=== PATIENT | male | born 1980 | race Two or more races ===

== ENCOUNTER 2021-08-03 20:51 | Emergency (ER) | payer SELFPAY ==
[~2021-08-03] VITALS: Ht 182.9 cm; Wt 210.0 kg
[2021-08-03 23:00] VITALS: BP 142/97
[2021-08-03] MEDS ORDERED: KETO5DRO89 OS (23:15)
--- NOTE | 2021-08-03 23:15 | PHYS DOC ---
Past Medical History Past Medical History: No Pertinent History Past Surgical History: No Surgical History Smoking Status: Never Smoker Alcohol Use: Occasionally Drug Use: None General Adult EDM: Chief Complaint: EYE PROBLEMS Problems: (1) Eye irritation HPI: HPI: Patient is a 41 year old male with history of severe seasonal allergies who presents with left eye irritation. Patient states that his seasonal allergies have been bothering him more than usual lately, and he has been rubbing his eye a lot. He states that there is a watery, sometimes mucousy discharge. He also reports that there is a fluid bubble in the sclera. He has never had issues like this before. He states that his vision is slightly blurred, but he denies hamilton spots or blind spots. Patient denies headache, pain, fever. Patient has no other complaints at this time. Review of Systems: Review of Systems: ROS negative except as mentioned in HPI. Heart Score: C/O Chest Pain: No Allergies: Allergies: Allergies Coded Allergies Type Severity Reaction Last Updated Verified No Known Drug Allergies 05/20/15 No Physical Exam: PE: Constitutional: Well developed, well nourished, no acute distress, non-toxic appearance. HENT: Normocephalic, atraumatic, bilateral external ears normal, oropharynx moist, no oral exudates, nose normal. Eyes: Visual acuity intact bilaterally. PERRLA, EOMI, OS: conjunctival and scleral injection, lateral chemosis present, watery discharge; corneal abrasion at 6:00 on lower margin appreciated with fluorescein stain and Fernandes lamp. OD: conjunctiva pink and moist, no scleral abnormalities. Cardiovascular:Heart rate regular rhythm, no murmur. Lungs & Thorax: Bilateral breath sounds clear to auscultation. Skin: Warm, dry, no erythema, no rash. Current Patient Data: Vital Signs: Vital Signs Date Time Temp Pulse Resp B/P (MAP) Pulse Ox O2 Delivery O2 Flow Rate FiO2 08/03/21 23:00 97.9 88 16 142/97 (112) 99 Room Air 97.9 Course & Med Decision Making: Course & Med Decision Making Pertinent Labs and Imaging studies reviewed. (See chart for details) Patient history and exam not concerning for bacterial conjunctivitis. Irritation likely due to seasonal allergies and exacerbated by physical irr itation from the patient rubbing his eye. Fluorescein stain and exam with Fernandes lamp was performed and revealed a corneal abrasion in the left eye 6:00 lower margin. Patient will be advised to use antihistamine as well as antibiotic eyedrops. I provided a referral ophthalmology to follow-up. Patient is instructed to call to set up an appointment. Patient is agreeable to the tr eatment plan. Dragon Disclaimer: Dragon Disclaimer: This electronic medical record was generated, in whole or in part, using a voice recognition dictation system. Departure Departure Impression: Primary Impression: Allergic conjunctivitis, left eye Additional Impression: Corneal abrasion, left Qualified Codes: S05.02XA - Injury of conjunctiva and corneal abrasion without foreign body, left eye, initial encounter Referrals: NO PCP (PCP) Brad ORTIZ MD Patient Instructions: Allergic Conjunctivitis, [id number], Eye - Corneal Abrasion, [id number] Additional Instructions: You should call the wealth management director using contact information provided tomorrow to set up a follow-up appointment. Return to emergency department if your symptoms worsen, or you develop a fever or white, thick discharge from your eye. Scripts Ciprofloxacin Hcl (CIPROFLOXACIN HCL) 2.5 Ml Drops 1 DROP OS QID for 7 Days, #5 ML 0 Refills Use 1 drop in the left eye 4 times per day. Be sure to wash hands thoroughly before administering eyedrops and again after so as not to spread the infection. Prov: KATHE CRUZ 08/03/21 Ketotifen Fumarate (KETOTIFEN FUMARATE) 5 Ml Drops 1 DROP OS BID, #5 ML 0 Refills Put 1 drop in the left eye twice a day as needed for symptom relief. Prov: KATHE CRUZ 08/03/21 KATHE CRUZ Aug 03, 2021 23:15
[2021-08-03] MEDS ORDERED: PROPARACAINE 0.5% OPHTH SOLUTION 15ML BOTTLE. OS ONE (23:30)
[2021-08-03] MEDS ORDERED: FLUORESCEIN OPHTH TEST STRIP. OS ONE (23:30)
[2021-08-03] MEDS ORDERED: CIPR2.5D2 OS (23:41)
== END 2021-08-03 23:50 | disposition home or self-care (01) ==
LOC: ER 20:51
DX: S05.02XA Injury of conjunctiva and corneal abrasion without foreign body, left eye, initial encounter (principal); H10.12 Acute atopic conjunctivitis, left eye; X58.XXXA Exposure to other specified factors, initial encounter; Y93.89 Activity, other specified; Y92.89 Other specified places as the place of occurrence of the external cause; Y99.8 Other external cause status
CPT/HCPCS: 99283